=== PATIENT | female | born 1945 | race Caucasian/White ===

== ENCOUNTER 2024-07-30 07:10 | Outpatient (CLI) | payer MEDICARE, SELFPAY ==
--- NOTE | ~2024-07-30 | MR_ITS ---
MRI of the left knee Clinical history: Instability Technique: Coronal proton density and proton density-weighted images, sagittal proton-density and T2 fat-sat images, and axial proton-density fat-saturated images were acquired. Findings: Anterior and posterior cruciate ligaments are intact. Medial collateral ligament and the la teral collateral ligament complex appear to be intact, though there is motion artifact on coronal seq uences. Suspected focal radial tear at the posterior root of the medial meniscus. No lateral meniscal tear ev ident. 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 There is extensive grade IV chondromalacia the medial compartment towards the medial joint line. Articular cartilage in the lateral compartment is relatively well-preserved. There is extensive amorphous marrow edema in the proximal tibia, espec ially centrally, which could reflect bone contusion or other reactive marrow edema. No fracture evide nt. Osteophytes are present at the medial and lateral joint lines and at the intercondylar notch. Extensor mechanism is intact. Moderate to large joint effusion present. Moderate septated Yi's cys t present. Impression: Radial tear at the posterior root of the medial meniscus. 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 Amorphous marrow edema proximal tibia, nonspecific. Correlate for bone contusion or other reactive ma rrow edema. No fracture evident. Moderate to large joint effusion and moderate Yi's cyst. Reviewed, dictated and finalized at location . Impression: Radial tear at the posterior root of the medial meniscus. Tricompartmental degenerative change, moderate in severity at the patellofemora l and medial compartments, as detailed above. Amorphous marrow edema proximal tibia, nonspecific. Correlate for bone contusio n or other reactive marrow edema. No fracture evident. Moderate to large joint effusion and moderate Yi's cyst.
== END 2024-07-30 07:11 | disposition home or self-care (01) ==
LOC: MICIMG 07:12
PROVIDERS: PCP Internal Medicine; Visit Provider Internal Medicine
DX: S83.242A Other tear of medial meniscus, current injury, left knee, initial encounter (principal); X58.XXXA Exposure to other specified factors, initial encounter; R60.0 Localized edema; M25.462 Effusion, left knee; M71.22 Synovial cyst of popliteal space [Baker], left knee; M25.369 Other instability, unspecified knee
CPT/HCPCS: 73721